=== PATIENT | female | born 1980 | race Caucasian/White ===

== ENCOUNTER → 2018-02-25 10:16 | Outpatient (CLI) | payer OTHER, SELFPAY | PROVIDERS: Family Provider Family Medicine; PCP Family Medicine; Visit Provider Dermatology | DX: L02.421 Furuncle of right axilla (principal) | CPT/HCPCS: 87070; 87077; 87186; 87205 ==

== ENCOUNTER → 2020-04-10 08:58 | Outpatient (CLI) | payer OTHER, SELFPAY ==
[2020-04-10 08:26] VITALS: BMI 25.4
[2020-04-10 12:53] LABS: Absolute Lymphocyte Count 2.05 X10^3/uL (0.83-4.51); Basophil# 0.04 X10^3/uL; Basophil% 0.5 % (0-1); Eosinophil# 0.07 X10^3/uL; Eosinophils% 0.9 % (0-5); Hematocrit 38.8 % (37-47); Hemoglobin 12.8 g/dL (12.0-15.0); Lymphocyte # 2.05 X10^3/ul (4.0); Lymphocyte % 26.9 % (19-41); Mean Corpuscular Hgb 30.4 pg (27.0-32.0); Mean Corpuscular Volume 92.2 fL (81-99); Mean Platelet Vol. 10.1 fl (6.2-12.0); Monocyte# 0.46 X10^3/uL; NRBC Flagged by Analyzer 0 % (0-5); Neutrophil # 4.98 X10^3/uL (2.7-7.7); Neutrophil % 65.3 % (47-70); Platelet Count 275 K/mm3 (150-450); RBC Distribution Width CV 13.4 % (11.6-14.6); RBC Distribution Width SD 45.1 fl (35.1-43.9); Red Blood Count 4.21 M/mm3 (4.2-5.4); White Blood Count 7.6 K/mm3 (4.4-11.0)
[2020-04-10 13:16] LABS: ALB/GLOB Ratio 1.1 RATIO (0.9-2.4); AST(SGOT) 12 U/L (15-37); Alanine Aminotransfer ALT/SGPT 23 U/L (13-56); Albumin, Serum 3.9 g/dL (3.2-5.0); Alkaline Phosphatase 61 U/L (45-117); Anion Gap 4 (5-15); BUN 11 mg/dL (7-18); BUN/Creat Ratio 14.6 RATIO (10-20); Calcium,Total 9.1 mg/dL (8.5-10.1); Chloride 107 mmol/L (98-107); Cholesterol 179 mg/dL (200); Creatinine, Serum 0.75 mg/dL (0.55-1.02); EST Glomerular Filtration Rate 91 mL/min (>60); Est Glom Filt Rate - Afr Amer 110 mL/min (>60); Globulin 3.4 g/dL (2.2-4.2); Glucose 85 mg/dL (74-106); High Density Lipoprotein 62 mg/dL; Potassium 3.9 mmol/L (3.5-5.1); Protein, Total 7.3 g/dL (6.4-8.2); Sodium Level 138 mmol/L (136-145); T4 Free Direct 0.98 ng/dL (0.76-1.46); Thyroid Stim Hormone (TSH) 1.35 uIU/mL (0.358-3.74); Triglycerides 85 mg/dL; Very Low Density Lipoprotein 17 mg/dL (5-40)
== END ==
PROVIDERS: PCP Internal Medicine; Visit Provider Internal Medicine
DX: Z00.00 Encounter for general adult medical examination without abnormal findings (principal); F41.9 Anxiety disorder, unspecified; F32.9 Major depressive disorder, single episode, unspecified
CPT/HCPCS: 36415; 80053; 80061; 84439; 84443; 85025

== ENCOUNTER 2020-08-31 09:05 | Outpatient (RCR) | payer OTHER, SELFPAY ==
[2020-04-10 08:26] VITALS: BMI 25.4
== END 2020-10-17 23:59 ==
LOC: IMMUN 09:05
PROVIDERS: PCP Internal Medicine; Referring Provider Family Medicine; Visit Provider Family Medicine
DX: Z23 Encounter for immunization (principal)
CPT/HCPCS: 0001A; 0002A; 91300

== ENCOUNTER → 2022-09-17 | Outpatient (CLI) | payer OTHER, SELFPAY ==
[2022-09-25 11:09] LABS: HPV APTIMA, High Risk Negative (Negative)
== END | disposition home or self-care (01) ==
LOC: LABSPEC 17:06
PROVIDERS: PCP Internal Medicine; Referring Provider Obstetrics & Gynecology; Visit Provider Obstetrics & Gynecology
DX: Z01.419 Encounter for gynecological examination (general) (routine) without abnormal findings (principal)
CPT/HCPCS: 87624; 88175; G0145

== ENCOUNTER → 2022-09-26 | Outpatient (CLI) | payer OTHER, SELFPAY ==
--- NOTE | 2022-09-26 08:07 | BI_ITS ---
MAMMOGRAPHY - BILATERAL SCREENING REASON FOR EXAM: Female, 42 years old. Routine annual screening examination. PERTINENT HISTORY: Non-contributory. TECHNIQUE: Digital bilateral breast summer (3D mammographic acquisition) in the CC and MLO projections. 2-D mediolateral oblique (MLO) and craniocaudad (CC) views of both breasts were obtained. CAD: Full Field Digital Mammography with Computer Added Detection was performed. COMPARISON: None. Baseline examination. FINDINGS: Breast Composition: The breasts are extremely dense, which lowers the sensitivity of mammography. There are no dominant masses or suspicious calcifications. No other significant abnormalities are identified. BI/SCRN MAMM (CAD)W/SUMMER BILAT IMPRESSION: Negative screening mammogram. Yearly followup mammogram recommended. (A) ASSESSMENT CATEGORY: BIRADS Category 1: Negative. A letter regarding these results will be sent to the patient by the facility within 30 days. Approximately 10% of breast cancers are not detected by mammography. A normal mammogram should not delay biopsy of a clinically suspicious abnormality. [id number] Electronically Signed: Mario George MD at 9:01 EDT ,
== END | disposition home or self-care (01) ==
LOC: OPBI 08:06
PROVIDERS: PCP Internal Medicine; Referring Provider Obstetrics & Gynecology; Visit Provider Obstetrics & Gynecology
DX: Z12.31 Encounter for screening mammogram for malignant neoplasm of breast (principal)
CPT/HCPCS: 77063; 77067

== ENCOUNTER → 2022-10-17 | Outpatient (CLI) | payer OTHER, SELFPAY ==
[2022-10-17 16:57] LABS: Absolute Neutrophil Count 6.8 X10^3/uL (2.0-7.7); Basophil# 0.05 X10^3/uL; Basophil% 0.5 % (0-1); Eosinophil# 0.07 X10^3/uL; Eosinophils% 0.7 % (0-5); Hematocrit 35.9 % (37-47); Hemoglobin 11.2 g/dL (12.0-15.0); Lymphocyte % 25.4 % (19-41); Mean Corp Hgb Conc 31.2 g/dL (32-36); Mean Corpuscular Hgb 28.5 pg (27.0-32.0); Mean Corpuscular Volume 91.3 fL (81-99); Mean Platelet Vol. 9.8 fl (6.2-12.0); Monocyte# 0.63 X10^3/uL; Monocyte% 6.2 % (0-10); NRBC Flagged by Analyzer 0 % (0-5); Neutrophil # 6.84 X10^3/uL (2.7-7.7); Neutrophil % 66.8 % (47-70); Platelet Count 344 K/mm3 (150-450); RBC Distribution Width CV 13.3 % (11.6-14.6); RBC Distribution Width SD 43.9 fl (35.1-43.9); Red Blood Count 3.93 M/mm3 (4.2-5.4); White Blood Count 10.2 K/mm3 (4.4-11.0)
[2022-10-17 17:41] LABS: ALB/GLOB Ratio 0.9 RATIO (0.9-2.4); AST(SGOT) 12 U/L (15-37); Alanine Aminotransfer ALT/SGPT 20 U/L (13-56); Albumin, Serum 3.5 g/dL (3.2-5.0); Alkaline Phosphatase 67 U/L (45-117); Anion Gap 7 (5-15); BUN 14 mg/dL (7-18); BUN/Creat Ratio 19.7 RATIO (10-20); Calcium,Total 9.2 mg/dL (8.5-10.1); Chloride 107 mmol/L (98-107); Cholesterol 174 mg/dL (200); Creatinine, Serum 0.71 mg/dL (0.55-1.02); EST Glomerular Filtration Rate 96 mL/min (>60); Est Glom Filt Rate - Afr Amer 116 mL/min (>60); Globulin 3.8 g/dL (2.2-4.2); Glucose 112 mg/dL (74-106); High Density Lipoprotein 57 mg/dL; Potassium 4.1 mmol/L (3.5-5.1); Protein, Total 7.3 g/dL (6.4-8.2); Sodium Level 141 mmol/L (136-145); Triglycerides 123 mg/dL; Very Low Density Lipoprotein 25 mg/dL (5-40)
[2022-10-18 14:23] LABS: Hemoglobin A1c 5.4 % (3.8-5.6)
== END | disposition home or self-care (01) ==
LOC: BIMLAB 15:21
PROVIDERS: PCP Internal Medicine; Visit Provider Internal Medicine
DX: I10 Essential (primary) hypertension (principal); R73.9 Hyperglycemia, unspecified
CPT/HCPCS: 36415; 80053; 80061; 83036; 85025

== ENCOUNTER → 2022-10-31 | Outpatient (CLI) | payer OTHER, SELFPAY | END | disposition home or self-care (01) | PROVIDERS: PCP Internal Medicine; Referring Provider Internal Medicine; Visit Provider Internal Medicine | DX: I10 Essential (primary) hypertension (principal) | CPT/HCPCS: 93005 ==

== ENCOUNTER → 2023-06-06 | Outpatient (CLI) | payer OTHER, SELFPAY ==
--- OUTSIDE RECORDS SUMMARY | 2023-06-06 10:06 | XMS RPT_ITS | CCD ---
Author Name Unknown Address [address] [place] [address] [id number] [place] [address] Organization [facility] Progress note 12-06-2020 Note Date & Type Note Facility 12-06-2020 Note HNO ID: [id number] Author: Jez Jacques Service: ? Author Type: ? Type: Progress Notes Filed: 12/06/2020 3:13 PM Note Text: POPULATION HEALTH NAVIGATION OUTREACH Action/I Cervical Cancer Screening (left VM, sent MYC msg) Contact made with patient or family member? NO Pt identified by name and : NO Outreach Outcome/Action Unable to reach patient: Left message ClickTalehart message sent Reason for Outreach Care Gap or Scheduling/Wellness visits Payer: Payor: MMO / Plan: MMO [employer] / Product Type: PPO / Care Gap Reviewed:: Annual Wellness visit Reminder: Reminder note to check Health Maintenance for items below Health Maintenance items due: DEPRESSION SCREENING Never done COVID-19 VACCINE(1) Never done HEPATITIS C SCREENING Never done PAP TESTING due on 01/05/2019 HPV TESTING due on 01/05/2019 Advanced Directives Completed: Have you ever planned for future healthcare decisions with a power of gravity flow irrigator, living will, or advance directives? Referrals: Message Sent to Practice: NO Navigation Signature: Jez Jacques December 06, 2020 3:12 PM [facility] Clinical Note 12-06-2020 Note Date & Type Note Facility 12-06-2020 Note Patient Outreach (BERNA SESAY) JOSE LAY ([id number]) 1980 F Date Time Provider Department 12/06/20 JEZ BARRIGA (PSS) ABEBA During your visit today, we recorded the following information about you: Jez Barriga Pss 12/06/2020 3:13 PM Signed POPULATION HEALTH NAVIGATION OUTREACH Action/I Cervical Cancer Screening (left VM, sent MYC msg) Contact made with patient or family member? NO Pt identified by name and : NO Outreach Outcome/Action Unable to reach patient: Left message MyChart message sent Reason for Outreach Care Gap or Scheduling/Wellness visits Payer: Payor: MMO / Plan: MMO [employer] / Product Type: PPO / Care Gap Reviewed:: Annual Wellness visit Reminder: Reminder note to check Health Maintenance for items below Health Maintenance items due: DEPRESSION SCREENING Never done COVID-19 VACCINE(1) Never done HEPATITIS C SCREENING Never done PAP TESTING due on 01/05/2019 HPV TESTING due on 01/05/2019 Advanced Directives Completed: Have you ever planned for future healthcare decisions with a power of gravity flow irrigator, living will, or advance directives? Referrals: Message Sent to Practice: NO Navigation Signature: Jez Barriga [facility] December 06, 2020 3:12 PM Allergies As of Date: 12/06/2020 (No Known Allergies) Date Reviewed: 02/01/2019 Reviewed by: Inez Graham Ma - Fully Assessed Reason for Visit: Population Health Navigation Outreach [3910] Cmt: Women's Health Annual Exam, scheduling Prescriptions as of 12/06/2020 - albuterol HFA (PROVENTIL HFA, VENTOLIN HFA) 90 mcg/actuation inhaler Inhale 2 Puffs as instructed every 4 hours as needed. 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] 06/01/2008 09/07/2008 Decreased movements, affecting management*09/28/2008 01/05/2014 Abdominal pain, right lower quadrant [R10.31] 08/03/2010 01/05/2014 Weakness generalized [R53.1] 08/03/2010 01/05/2014 Normal [Z34.90] 06/10/2014 02/24/2015 Anemia affecting [O99.019] 10/20/2014 02/24/2015 Abnormal glucose affecting [O99.810] 10/20/2014 02/24/2015 Encounter for supervision of normal i*04/02/2016 10/08/2016 Elderly multigravida in first trimester [O09.52*04/02/2016 10/08/2016 Asymptomatic bacteriuria during [O99.*04/08/2016 10/08/2016 Pruritic condition [L29.9] 08/30/2016 09/27/2016 Encounter Status:Closed by JEZ RAHMAN on 12/06/20 [facility] Summary Purpose Family History No Family History Records Found Advance Directives No Advanced Directives Records Found Additional Source Comments INFORMATION SOURCE (unrecogn ized section and content) FOR RECORDS PERTAINING TO PATIENTS WHO ARE OR HAVE BEEN ENROLLED IN A CHEMICAL DEPENDENCY/SUBSTANCEABUSE PROGRAM, SOME INFORMATION MAY BE OMITTED. This clinical summary was aggregated from multiple sources. Caution should be exercised in using it in the provision of clinical care. This summary normalizes information from multiple sources, and as a consequence, information in this document may materially change the coding, format and clinical context of patient data. In addition, data may be omitted in some cases. CLINICAL DECISIONS SHOULD BE BASED ON THE PRIMARY CLINICAL RECORDS. [employer] provides no warranty or guarantee of the accuracy or completeness of information in this document.
[2023-06-06 12:22] LABS: Erythrocyte Sedimentation Rate 4 mm/hr (0-30)
[2023-06-06 13:05] LABS: CRP < 2.90 mg/L (0.0-3.0); Rheumatoid Factor < 10.0 IU/mL (<15)
[2023-06-09 13:07] LABS: ANTINUCLEAR ANTIBODIES DIRECT Negative (Negative)
== END | disposition home or self-care (01) ==
LOC: BIMLAB 09:38
PROVIDERS: PCP Internal Medicine; Referring Provider Internal Medicine; Visit Provider Internal Medicine
DX: M19.90 Unspecified osteoarthritis, unspecified site (principal)
CPT/HCPCS: 36415; 85652; 86038; 86140; 86225; 86235; 86431

== ENCOUNTER → 2023-09-26 | Outpatient (CLI) | payer OTHER, SELFPAY ==
[2023-09-26 12:06] LABS: Absolute Lymphocyte Count 2.24 X10^3/uL (0.83-4.51); Basophil# 0.05 X10^3/uL; Basophil% 0.6 % (0-1); Eosinophil# 0.05 X10^3/uL; Eosinophils% 0.6 % (0-5); Hematocrit 36.8 % (37-47); Hemoglobin 11.7 g/dL (12.0-15.0); Lymphocyte # 2.24 X10^3/ul (0.83-4.51); Lymphocyte % 28.6 % (19-41); Mean Corp Hgb Conc 31.8 g/dL (32-36); Mean Corpuscular Hgb 27.7 pg (27.0-32.0); Mean Corpuscular Volume 87.2 fL (81-99); Monocyte% 6.4 % (0-10); NRBC Flagged by Analyzer 0 % (0-5); Neutrophil # 4.97 X10^3/uL (2.7-7.7); Neutrophil % 63.5 % (47-70); Platelet Count 337 K/mm3 (150-450); RBC Distribution Width CV 14.5 % (11.6-14.6); Red Blood Count 4.22 M/mm3 (4.2-5.4); White Blood Count 7.8 K/mm3 (4.4-11.0)
[2023-09-26 12:24] LABS: AST(SGOT) 13 U/L (15-37); Alanine Aminotransfer ALT/SGPT 18 U/L (13-56); Albumin, Serum 3.9 g/dL (3.2-5.0); Alkaline Phosphatase 69 U/L (45-117); Anion Gap 3 (5-15); BUN 12 mg/dL (7-18); BUN/Creat Ratio 16.2 RATIO (10-20); Calcium,Total 9.1 mg/dL (8.5-10.1); Chloride 106 mmol/L (98-107); Cholesterol 180 mg/dL (200); Creatinine, Serum 0.74 mg/dL (0.55-1.02); EST Glomerular Filtration Rate 92 mL/min (>60); Est Glom Filt Rate - Afr Amer 111 mL/min (>60); Globulin 3.8 g/dL (2.2-4.2); Glucose 88 mg/dL (74-106); High Density Lipoprotein 55 mg/dL; Potassium 3.8 mmol/L (3.5-5.1); Protein, Total 7.7 g/dL (6.4-8.2); Sodium Level 137 mmol/L (136-145); Triglycerides 105 mg/dL; Very Low Density Lipoprotein 21 mg/dL (5-40)
== END | disposition home or self-care (01) ==
LOC: BIMLAB 09:41
PROVIDERS: PCP Internal Medicine; Visit Provider Internal Medicine
DX: Z00.00 Encounter for general adult medical examination without abnormal findings (principal)
CPT/HCPCS: 36415; 80053; 80061; 85025

== ENCOUNTER → 2023-09-29 | Outpatient (CLI) | payer OTHER, SELFPAY ==
--- NOTE | 2023-09-29 08:02 | BI_ITS ---
MAMMOGRAPHY - BILATERAL SCREENING 3-D TOMOSYNTHESIS REASON FOR EXAM: Female, 43 years old. breast cancer screening PERTINENT HISTORY: No significant family history. TECHNIQUE: 2-D mammograms and 3-D Tomosynthesis of the breast (s) were performed. CAD was performed. COMPARISON: 09/26/2022 FINDINGS: The breast composition is Extermely dense tissue. Scattered benign calcifications are seen. No dense spiculated masses or suspicious microcalcifications are identified. No architectural distortion is identified. There is no skin thickening or retraction. There has been no significant change since the prior study. BI/SCRN MAMM (CAD)W/SUMMER BILAT IMPRESSION: No mammographic signs of malignancy. Routine yearly mammograms recommended. ASSESSMENT CATEGORY: BIRADS Category 1: Negative. A letter regarding these results will be sent to the patient by the facility within 30 days. FOLLOW UP RECOMMENDATION: Yearly follow up mammogram recommended. (A) Approximately 10% of breast cancers are not detected by mammography. A normal mammogram should not delay biopsy of a clinically suspicious abnormality. Electronically Signed: Jose Soliz MD at 10:04 EDT ,
== END | disposition home or self-care (01) ==
LOC: OPBI 08:02
PROVIDERS: PCP Internal Medicine; Referring Provider Obstetrics & Gynecology; Visit Provider Obstetrics & Gynecology
DX: Z12.31 Encounter for screening mammogram for malignant neoplasm of breast (principal)
CPT/HCPCS: 77063; 77067

== ENCOUNTER 2024-01-26 08:55 | Day surgery (SDC) | payer OTHER, SELFPAY ==
[2024-01-26] VITALS (9 sets, daily range): BP systolic 100–134; BP diastolic 69–85; PULSE 70–92; RESP 16; TEMP 36.2–37.4; O2SAT 97–100; BMI 26.2
--- NOTE | 2024-01-26 | COLBX_PTH ---
PATIENT: JOSE LAY LOC: EN U#:[id number] AGE/SX: 43/F ROOM: RE01/26/[address]: Dr. Sharon Zhao MD : 1980 BED: DIS: 01/26/2024 SPEC #: [id number] RECD: 01/26/24 14:50 STATUS: MICHELLE JANEL #: [id number] ANJANA: 01/26/24 00:[address]: Sharon Zhao DEPT: SURGICAL PATHOLOGY RECD BY: Seferino Araujo ENTERED: 01/27/24 09:46 SP TYPE: COLON BX OTHR DR: Dr. Krupa Graves MD Tissues: A - COLON BIOPSY B - Descending colon C - Descending colon D - Descending colon E - Descending colon F - Sigmoid colon biopsy Procedures: Surgery Specimen Level IV HEADER OPERATION: Colonoscopy with polypectomy PRE-OP DIAGNOSIS: Family history of colon cancer in mother TISSUE SUBMITTED: A- Near appendiceal orifices x2 polyps, B- Descending colon polyp, C- Descending colon top polyp at 85cm, D- Descending colon base of #3 polyp biopsy,E- Descending colon polyp at 75cm, F- Sigmoid colon polyp x2 MICROSCOPIC DIAGNOSIS A. Polyp near appendiceal orifice, biopsy: Fragments of tubular adenoma. B. Descending colon polyp, biopsy: No specimen in container. C. Descending colon top polyp at 85cm, biopsy: Tubular adenoma. D. Descending colon base of polyp, biopsy: No pathologic change. E. Descending colon polyp at 75cm, biopsy: Hyperplastic polyp. F. Sigmoid colon polyp, biopsy: Fragments of hyperplastic polyp. . 01/28/2024 COMMENT B. No specimen found in the specimen container. Case is discussed with Dr. Zhao 01/28/2024. Case has been reviewed in consultation with Dr. Acosta who concurs with the above diagnosis. IDC:SJ MICROSCOPIC DESCRIPTION Slides are reviewed. GROSS DESCRIPTION A. Received in fixative is one container labeled with the patient's name and designated Appendiceal orifice polyps. The specimen consists of multiple irregular fragments of light gordillo soft tissue that in aggregate measure 0.6 x 0.2 x 0.1 cm. The specimen is totally submitted in one cassette. B. Received in fixative is one container labeled with the patient's name and designated Descending colon polyp. No specimen in container. C. Received in fixative is one container labeled with the patient's name and designated Descending colon polyp. The specimen consists of a polypoid fragment of gordillo tissue measuring 1.5 x 1.0 x 0.7cm. The specimen is sectioned and totally submitted in one cassette. D. Received in fixative is one container labeled with the patient's name and designated Descending colon polyp base . The specimen consists of one irregular fragment of light gordillo soft tissue that measures 0.7 x 0.2 x 0.1 cm. The specimen is totally submitted in one cassette. E. Received in fixative is one container labeled with the patient's name and designated Descending colon polyp. The specimen consists of one irregular fragment of light gordillo soft tissue that measures 1.0 x 0.8 x 0.5 cm. This specimen is bisected and totally submitted in one cassette. F. Received in fixative is one container labeled with the patient's name and designated Sigmoid polyp. The specimen consists of multiple irregular fragments of light gordillo soft tissue that in aggregate measure 1.0 x 0.5 x 0.1 cm. The specimen is totally submitted in one cassette. 01/27/2024 TC:5 CPT:58602r0
[2024-01-26 09:49] LABS: Internal QC Validated? YES +Cl - CLEAR BKGD; Pregnancy, Urine Negative Negative; Record Kit Lot#,Urine Preg HCG0000772476
[2024-01-26] MEDS: Lactated Ringers 1,000 ML 15 ML IV (09:52)
--- NOTE | 2024-01-26 11:10 | PCM.PRE.AN2 ---
ASA Classification* ASA Classification ASA Classification: 2 Assessment & Plan Anesthesia* Anesthesia Assessment Anesthesia Assessment: Discussed sedation and/or anesthesia options, risks, benefits, and alternatives with patient/parents/legal guardian/POA. Questions invited. The patient/parents/legal guardian/POA seems to understand and agrees to proceed with anesthesia plan. Reviewed the physical assessment, medical history, allergy history and patient home medications list prior to surgery/procedure/anesthetic and documented any changes. Performed airway and anesthesia risk assessments. Anesthesia Type Anesthesia Type: MAC History Source History Obtained from:: Patient and Chart Anesthesia Focused Assessment* Temperature: 97.1 F Pulse Rate: 92 Blood Pressure: 134/78 Respiratory Rate: 16 Pulse Ox: 100 Oxygen Delivery Method: Room Air Airway Assessment Mouth opens: >3 cm Mallampati Score: I Teeth Condition: Intact Neck Range of motion (ROM): Full ROM Focused Labs Anesthesia Preop lab: CBC WBC 7.8 K/mm3 (4.4-11.0) 09/26/23 09:41 RBC 4.22 M/mm3 (4.2-5.4) 09/26/23 09:41 Hgb 11.7 g/dL (12.0-15.0) L 09/26/23 09:41 Hct 36.8 % (37-47) L 09/26/23 09:41 Plt Count 337 K/mm3 (150-450) 09/26/23 09:41 CHEMISTRY Potassium 3.8 mmol/L (3.5-5.1) 09/26/23 09:41 Sodium 137 mmol/L (136-145) 09/26/23 09:41 BUN 12 mg/dL (7-18) 09/26/23 09:41 Creatinine 0.74 mg/dL (0.55-1.02) 09/26/23 09:41 Glucose 88 mg/dL (74-106) 09/26/23 09:41 TSH 1.35 uIU/mL (0.358-3.74) 04/10/20 08:59 COAG Urine Test Negative Negative 01/26/24 09:40 Pre-Assessment Diagnosis/Proposed Procedure Planned Operative Procedure(s): COLONOSCOPY Anesthesia History Anesthesia History - record searcher: Anesthesia History - record searcher Hx Hospitalization No 01/22/24 12:22 Any Problems With Anesthesia No 01/22/24 12:22 Cholinesterase deficiency No 01/22/24 12:22 You/Your Family Experience No 01/22/24 12:22 fever (hyperthermia) with Relationship Recent Exposure to Contagious No 01/26/24 09:48 Disease Does patient have nerve No 01/22/24 12:22 stimulator Patient instructed to have device shut off --Does patient have Pacemaker No 01/26/24 09:48 or ICD? When Was Last Pacemaker Check QUESTION #4 FULL TEXT: You/Your Family Experience fever (hyperthermia) with Anesthesia Last Oral Intake Last Oral intake: Last Oral Intake NPO since 21:00 01/26/24 09:48 Meds taken in AM with sips of Yes 01/26/24 09:48 water? Meds patient instructed to AMLODIPINE 01/26/24 09:48 take am of surgery PONV PONV - record searcher: PONV - record searcher Female Yes 01/22/24 12:22 HX of Motion Sickness No 01/22/24 12:22 HX of N/V After Surgery No 01/22/24 12:22 Non-Smoker Yes 01/22/24 12:22 Duration of Surgery greater No 01/22/24 12:22 than 60 minutes Number of Risk Factors 2 01/22/24 12:22 PONV Score Moderate Risk 01/22/24 12:22 Height & Weight Height & Weight: Anesthesia: Height & Weight Height 5 ft 6 in 01/26/24 09:48 Weight: 73.7 kg 01/26/24 09:48 Body Mass Index (BMI) 26.2 01/26/24 09:48 Respiratory Assessment Respiratory Assessment - record searcher: Respiratory Tract Infection Hx - record searcher Hx Respiratory Tract Infection No 01/22/24 12:22 STOP Sleep Apnea STOP Sleep Apnea - record searcher: STOP Sleep Apnea - record searcher Hx Hypertension Yes: CONTROLLED WITH MEDS 01/22/24 12:22 Hx Sleep Apnea No 01/22/24 12:22 CPAP BIPAP Do you snore loudly (louder No 01/22/24 12:22 than talking or can be heard Do you often feel tired/ No 01/22/24 12:22 fatigued/ sleepy during daytime? Has anyone observed you stop No 01/22/24 12:22 breathing during sleep? STOP Results Negative 01/22/24 12:22 QUESTION #5 FULL TEXT : Do you snore loudly (louder than talking or can be heard through closed doors)? 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 Specify any problems Hx of Preganancy in last 3 No 01/22/24 12:22 Months Nurse Filling Out Transfusion [id number] 01/22/24 12:22 & Questions: Date: 01/22/24 01/22/24 12:22 Time: 12:24 01/22/24 12:22 Patient unable to answer at this time (ie. confused, unrespo /Reproduction History /Reproductive History - record searcher: /Reproductive Hx- record searcher Hx Now No 01/22/24 12:22 Gestational Age (in weeks): EDC: Hx Hx Para Hx Section SAB No 01/22/24 12:22 Active Medications Active Medications: Current Medications Generic Name Dose Route Start Last Admin Trade Name Freq PRN Reason Stop Dose Admin Lactated Ringer's 1,000 mls @ 15 mls/hr 01/26/24 09:45 01/26/24 09:52 IV 15 mls/hr .Q48H SARABJIT Administration PFSH Medical History Low iron Non-smoker Family history of colon cancer in mother Colon cancer screening Preventative health care Arthritis COVID Hypertension Anemia History of arm fracture History of migraine History of vaginal delivery Home Medications ?Medication ?Instructions ?Recorded ?Last Taken ?Type amlodipine 5 mg tablet 5 mg PO DAILY #90 tabs 07/08/23 01/26/24 Rx Allergy/AdvReac Type Severity Reaction Status Date / Time No Known Allergies Allergy Verified 01/22/24 12:21 Family History Mother Colon cancer Depression COPD (chronic obstructive pulmonary disease) Father Depression Hypertension Grandmother Myocardial infarction, Onset Age: 60 Diabetes Paternal Osteoporosis maternal Grandfather Colon cancer CVA (cerebral vascular accident) paternal Other Arthritis Social History Smoking Status: Never smoker alcohol intake: current alcohol intake frequency: holidays/special occasions only substance use type: does not use caffeine: Yes what type of physical activity do you participate in: aerobics frequency: 3-4 times per week Review of Systems (Anesthesia) ROS Narrative System reviewed and no additional complaints, except as documented.
--- NOTE | 2024-01-26 11:27 | H&P.OPEN ---
HPI - General General Date of Service: 01/26/24 HPI Narrative JOSE LAY, is a 43 F who presents for colonoscopy due to family history of colon cancer?patient's mom. Patient never had previous colonoscopy. Denies any changes since office visit. office visit 11/20/23 [facility] HPI: 43-year-old female presents due to family history of colon cancer. Patient's mom was diagnosed with stage IV colon cancer at age 52. Patient's never had previous colonoscopy. Patient has bowel movements daily denies any blood. Patient denies any chronic abdominal pain/nausea/vomiting/reflux. [facility] Medical History Low iron Non-smoker Family history of colon cancer in mother Colon cancer screening Preventative health care Arthritis COVID Hypertension Anemia History of arm fracture History of migraine History of vaginal delivery Home Medications ?Medication ?Instructions ?Recorded ?Last Taken ?Type amlodipine 5 mg tablet 5 mg PO DAILY #90 tabs 07/08/23 01/26/24 Rx Allergy/AdvReac Type Severity Reaction Status Date / Time No Known Allergies Allergy Verified 01/22/24 12:21 Family History Mother Colon cancer Depression COPD (chronic obstructive pulmonary disease) Father Depression Hypertension Grandmother Myocardial infarction, Onset Age: 60 Diabetes Paternal Osteoporosis maternal Grandfather Colon cancer CVA (cerebral vascular accident) paternal Other Arthritis Social History Smoking Status: Never smoker alcohol intake: current alcohol intake frequency: holidays/special occasions only substance use type: does not use caffeine: Yes what type of physical activity do you participate in: aerobics frequency: 3-4 times per week Past Medical/Surgical History Planned Operation Planned Operative Procedure(s): COLONOSCOPY Previous Hospitalizations/Surgeries HX Hospitalizations: No Any Problems With Anesthesia: No You/Your Family Experience Fever (Hyperthermia) With Anes: No Cholinesterase deficiency: No Cardiovascular Hx Hypertension: Yes (CONTROLLED WITH MEDS) Respiratory Hx Sleep Apnea: No Hx Respiratory Tract Infection/Cold (presently): No Do You Snore Loudly (louder than talking or can be heard): No Do You Often Feel Tired/ Fatigued/ Sleepy Dring Daytime?: No Has Anyone Observed You Stop Breathing During Sleep?: No Result (for STOP score): Negative Hx Smoking: No Smoking Status: Never smoker Neurological Does patient have nerve stimulator: No Reproduction : No Miscellaneous Recent Exposure to Contagious Disease: No Allergies No Known Allergies Allergy (Verified 01/22/24 12:21) Discharge After D/C, Where Do you Plan to Go: Return Home Vital Signs Vital Signs Vital Signs: 01/26/24 09:48 01/26/24 09:48 01/26/24 11:16 Temperature 97.1 F L 97.1 F L Temperature Source Temporal Pulse Rate 92 92 Respiratory Rate 16 16 Respiratory Pattern Normal Blood Pressure 134/78 H 134/78 H Blood Pressure Mean 96 Blood Pressure Source Monitor Blood Pressure Position Semi-Fowlers Blood Pressure Location Left Arm Pulse Ox 100 100 Oxygen Delivery Method Room Air Room Air Weight Weight: 162 lb 7.691 oz Body Mass Index (BMI) 26.2 Physical Exam Const alert, oriented x3 and no apparent distress HEENT normocephalic and head/scalp atraumatic Resp normal respiratory effort Cardio regular rate GI soft to palpation and non-tender; Negative for non-distended Palpation: Negative for guarding Extremity no clubbing, cyanosis or edema Skin no rashes or lesions noted Neuro CN's II-XII intact bilaterally Psych mental status grossly normal Assessment & Plan Assessment/Plan (1) Family history of colon cancer in mother: Surgery Risks - Colonoscopy I discussed with the patient the risks of the procedure: Yes Risks Include but are not Limited To: Risks include but are not limited to: Bleeding, perforation requiring further surgery, inability to complete colonoscopy requiring barium enema.
--- NOTE | 2024-01-26 12:56 | PCM.POST.ANE ---
Anesthesia: Postop Eval I Current Vital Signs Temperature: 98.2 F Pulse Rate: 87 Blood Pressure: 105/69 Respiratory Rate: 16 Pulse Ox: 97 Oxygen Delivery Method: Room Air Assessment Airway patent: Yes Spontaneous unlabored respirations: Yes Mental status: Awake and Calm nausea: No Vomiting: No Anesthesia Complication: No Fluid Hydration Crystalloid volume administer (ml): 600 Total IV fluid infused: 600 Progress Note Anesthesia document: Postop Eval 1 completed: Yes
--- NOTE | 2024-01-26 12:58 | OP.COLON_ITS ---
Patient Name: Marlys Johnson Procedure Date: 01/26/2024 12:10 PM Date of : 1980 Age: 43 Procedure: Colonoscopy Indications: Screening in patient at increased risk: Colorectal cancer in mother before age 60 Providers: Sharon Zhao MD Referring MD: Krupa Graves MD Medicines: Monitored Anesthesia Care Patient Profile: This is a 43 year old female. Last Colonoscopy: none. The patient's first colonoscopy is today. Complications: No immediate complications. Procedure: Pre-Anesthesia Assessment: - Prior to the procedure, a History and Physical was performed, and patient medications and allergies were reviewed. The patient's tolerance of previous anesthesia was also reviewed. The risks and benefits of the procedure and the sedation options and risks were discussed with the patient. All questions were answered, and informed consent was obtained. Prior Anticoagulants: The patient has taken no anticoagulant or antiplatelet agents. ASA Grade Assessment: Per anesthesia. After reviewing the risks and benefits, the patient was deemed in satisfactory condition to undergo the procedure. After I obtained informed consent, the scope was passed under direct vision. Throughout the procedure, the patient's blood pressure, pulse, and oxygen saturations were monitored continuously. The Colonoscope was introduced through the anus and advanced to the cecum, identified by appendiceal orifice and ileocecal valve. The colonoscopy was performed without difficulty. The patient tolerated the procedure well. The quality of the bowel preparation was good. Scope In: 12:16:28 PM Scope Withdrawal Time 0 hours 26 minutes 3 seconds Scope Out: 12:47:25 PM Total Procedure Duration Time 0 hours 30 minutes 57 seconds Findings: The perianal and digital rectal examinations were normal. Three semi-pedunculated polyps were found in the descending colon and appendiceal orifice. The polyps were less than 5 mm in size. These polyps were removed with a hot snare. Resection and retrieval were complete. A 17 mm polyp was found in the descending colon at 85 cm proximal to the anus. The polyp was pedunculated. The polyp was removed with a hot snare. Resection and retrieval were complete. A 10 mm polyp was found in the descending colon at 75 cm proximal to the anus. The polyp was semi-pedunculated. The polyp was removed with a hot snare. Resection and retrieval were complete. Two sessile polyps were found in the sigmoid colon. The polyps were less than 5 mm in size. These polyps were removed with a cold biopsy forceps. Resection and retrieval were complete. The exam was otherwise without abnormality on direct and retroflexion views. Impression: - Three less than 5 mm polyps in the descending colon and at the appendiceal orifice, removed with a hot snare. Resected and retrieved. - One 17 mm polyp in the descending colon at 85 cm proximal to the anus, removed with a hot snare. Resected and retrieved. - One 10 mm polyp in the descending colon at 75 cm proximal to the anus, removed with a hot snare. Resected and retrieved. - Two less than 5 mm polyps in the sigmoid colon, removed with a cold biopsy forceps. Resected and retrieved. - The examination was otherwise normal on direct and retroflexion views. Recommendation: - Discharge patient to home. - Resume previous diet. - Continue present medications. - Await pathology results. - Repeat colonoscopy in 1 year for surveillance based on pathology results. Procedure Code(s): --- Professional --- 86107, PT, Colonoscopy, flexible; with removal of tumor(s), polyp(s), or other lesion(s) by snare technique 57907, 59, Colonoscopy, flexible; with biopsy, single or multiple Diagnosis Code(s): --- Professional --- Z80.0, Family history of malignant neoplasm of digestive organs D12.4, Benign neoplasm of descending colon D12.1, Benign neoplasm of appendix D12.5, Benign neoplasm of sigmoid colon CPT copyright 2021 [employer]. All rights reserved. The codes documented in this report are preliminary and upon field marketer review may be revised to meet current compliance requirements. MD Sharon Plascencia MD 01/26/2024 12:58:32 PM This report has been signed electronically. Number of Addenda: 0 Note Initiated On: 01/26/2024 12:10 PM
--- NOTE | 2024-01-26 12:59 | OP.CCLET_ITS ---
01/26/2024 Krupa Graves MD [address] [address] [place] [address] Re : Colonoscopy procedure for Marlys Johnson Dear Dr. Graves This procedure was performed on Friday, January 26, 2024. My impressions and recommendations are as follows: Impressions : - Three less than 5 mm polyps in the descending colon and at the appendiceal orifice, removed with a hot snare. Resected and retrieved. - One 17 mm polyp in the descending colon at 85 cm proximal to the anus, removed with a hot snare. Resected and retrieved. - One 10 mm polyp in the descending colon at 75 cm proximal to the anus, removed with a hot snare. Resected and retrieved. - Two less than 5 mm polyps in the sigmoid colon, removed with a cold biopsy forceps. Resected and retrieved. - The examination was otherwise normal on direct and retroflexion views. Recommendations : - Discharge patient to home. - Resume previous diet. - Continue present medications. - Await pathology results. - Repeat colonoscopy in 1 year for surveillance based on pathology results. My findings are described in the full procedure note, which is enclosed. If I can be of further assistance, please feel free to contact me at Doctor phone number(s): , Work: . Sincerely, MD Sharon Plascencia MD 01/26/2024 12:58:32 PM This report has been signed electronically.
--- NOTE | 2024-01-26 16:24 | PCM.POSTANE2 ---
Anesthesia Postop Eval I Sum Postop Eval Completion status Anesthesia document: Postop Eval 1 completed: Yes Anesthesia Postop Eval I Summary Anesthesia Postop Eval I Summary: Anesthesia Postop Eval I: Assessment Summary Airway patent Yes 01/26/24 12:57 [email or web address] Spontaneous unlabored Yes 01/26/24 12:57 [email or web address] respirations Mental status Awake,Calm 01/26/24 12:57 [email or web address] nausea No 01/26/24 12:57 [email or web address] Vomiting No 01/26/24 12:57 [email or web address] Anesthesia Postop Eval I: Fluid Summary Crystalloid volume administer 600 01/26/24 12:57 [email or web address] (ml) Colloids volume administered ( ml) Blood Product volume administered (ml) Total IV fluid infused 600 01/26/24 12:57 [email or web address] Anesthesia Postop Eval I: Summary Notes Anesthesia Complication No 01/26/24 12:57 [email or web address] Anesthesia Complication Comment: Post-operative progress note Anesthesia: Postop Eval II Evaluation Mental status: Awake and Calm Pain Level: 0 nausea: No Vomiting: No Complications Anesthesia Complication: No
== END 2024-01-26 13:56 | disposition home or self-care (01) ==
LOC: EN 08:55 → AC 09:28
PROVIDERS: Anesthesiology; PCP Internal Medicine; Referring Provider Internal Medicine; Visit Provider Surgery
PROC: 0DJD8ZZ Inspection of Lower Intestinal Tract, Via Natural or Artificial Opening Endoscopic (ICD-10-PCS; CPT 45378; principal; 2024-01-26 10:10)
DX: Z12.11 Encounter for screening for malignant neoplasm of colon (principal); D12.4 Benign neoplasm of descending colon; I10 Essential (primary) hypertension; Z80.0 Family history of malignant neoplasm of digestive organs; Z79.899 Other long term (current) drug therapy
CPT/HCPCS: 45380; 45385; 81025; 88305; J2405

== ENCOUNTER → 2024-01-30 | Outpatient (CLI) | payer OTHER, SELFPAY ==
[2024-01-30 12:17] LABS: Absolute Lymphocyte Count 2.29 X10^3/uL (0.83-4.51); Absolute Neutrophil Count 6.3 X10^3/uL (2.0-7.7); Basophil# 0.04 X10^3/uL; Basophil% 0.4 % (0-1); Eosinophil# 0.09 X10^3/uL; Hematocrit 38.4 % (37-47); Hemoglobin 12.8 g/dL (12.0-15.0); Lymphocyte # 2.29 X10^3/ul (0.83-4.51); Lymphocyte % 24.4 % (19-41); Mean Corp Hgb Conc 33.3 g/dL (32-36); Mean Corpuscular Hgb 29.9 pg (27.0-32.0); Mean Corpuscular Volume 89.7 fL (81-99); Monocyte# 0.59 X10^3/uL; Monocyte% 6.3 % (0-10); NRBC Flagged by Analyzer 0 % (0-5); Neutrophil # 6.32 X10^3/uL (2.7-7.7); Neutrophil % 67.5 % (47-70); Platelet Count 329 K/mm3 (150-450); RBC Distribution Width CV 13.7 % (11.6-14.6); RBC Distribution Width SD 44.3 fl (35.1-43.9); Red Blood Count 4.28 M/mm3 (4.2-5.4); White Blood Count 9.4 K/mm3 (4.4-11.0)
[2024-01-30 12:33] LABS: Ferritin 6 ng/mL (8-252); Iron 78 ug/dL (50-170); Iron Binding Capacity,Total 460 ug/dL (250-450)
== END | disposition home or self-care (01) ==
LOC: BIMLAB 08:24
PROVIDERS: PCP Internal Medicine; Referring Provider Internal Medicine; Visit Provider Internal Medicine
DX: D64.9 Anemia, unspecified (principal)
CPT/HCPCS: 36415; 82728; 83540; 83550; 85025